=== PATIENT | female | born 1995 | race Asian ===

== ENCOUNTER 2016-11-17 18:47 | Emergency (ER) | payer BC ==
[~2016-11-17] VITALS: Wt 57.5 kg
[~2016-11-17 18:47] MED LIST: ONDA4TAB14 PO; RANI150T9 PO
[2016-11-17 18:56] VITALS: Wt 57.5 kg
[2016-11-17] MEDS ORDERED: ACETAMINOPHEN 325 MG TAB PO ONE (20:00)
[2016-11-17 20:15] LABS: ADD UMIC YES; URINE BILIRUBIN (Dip) NEGATIVE (NEGATIVE); URINE BLOOD (Dip) NEGATIVE (NEGATIVE); URINE COLOR LT. YELLOW (YELLOW); URINE GLUCOSE (Dip) NEGATIVE (NEGATIVE); URINE KETONES (Dip) 3+ (NEGATIVE); URINE LEUKOCYTE ESTERASE (Dip) TRACE (NEGATIVE); URINE NITRITE (Dip) NEGATIVE (NEGATIVE); URINE TOTAL PROTEIN (Dip) NEGATIVE (NEGATIVE); URINE UROBILINOGEN (Dip) 1.0 E.U./dL (0.1-1.0)
[2016-11-17 20:23] LABS: BACTERIA,URINE OCCASIONAL
[2016-11-17 22:06] LABS: ADD SCAN DIFF NO
[2016-11-17 22:08] LABS: BASOPHILS % 0.2 % (0.0-2.0); EOSINOPHILS % 0.1 % (0.0-7.0); HEMATOCRIT 40.8 % (37.0-47.0); LYMPHOCYTES # 1.5 10^3/ul (0.8-2.9); LYMPHOCYTES % 14.6 % (15.0-51.0); MEAN CORPUSCULAR HEMOGLOBIN 24.9 pg (29.0-33.0); MEAN CORPUSCULAR HGB CONC 31.9 g/dl (32.0-37.0); MEAN CORPUSCULAR VOLUME 78.2 fl (82.0-101.0); MEAN PLATELET VOLUME 10.6 fl (7.4-10.4); MONOCYTE # 1.3 10^3/ul (0.3-0.9); MONOCYTES % 12.6 % (0.0-11.0); NEUTROPHIL # 7.2 10^3/ul (1.6-7.5); NEUTROPHILS % 72.3 % (39.0-77.0); PLATELET COUNT 248 10^3/UL (140-415); RED BLOOD COUNT 5.22 10^6/ul (4.20-5.40); RED CELL DISTRIBUTION WIDTH 13.2 % (11.5-14.5)
[2016-11-17 22:26] LABS: ALBUMIN 4.6 g/dl (3.3-4.9)
[2016-11-17 22:27] LABS: POTASSIUM 3.8 mmol/L (3.5-5.1)
[2016-11-17 22:29] LABS: BILIRUBIN,INDIRECT 0.3 mg/dl (0-1.1); BILIRUBIN,TOTAL 0.3 mg/dl (0.2-1.3); CREATININE 0.65 mg/dl (0.44-1.00)
[2016-11-17 22:30] LABS: ALBUMIN/GLOBULIN RATIO 1.17; CALCIUM 9.1 mg/dl (8.4-10.2); TOTAL PROTEIN 8.5 g/dl (6.1-8.1)
[2016-11-17] MEDS ORDERED: METR500T PO (22:34)
[2016-11-17] MEDS ORDERED: CIPR500T4 PO (22:34)
[2016-11-17] MEDS ORDERED: LOPE2CAP PO (22:40)
--- NOTE | 2016-11-17 22:45 | ERA ---
ER Documentation Chief Complaint Date/Time DATE: 11/17/16 TIME: 22:40 Chief Complaint BODYACHE/FATIGUE/CHEST WALL PAIN X6DAYS, SORE THROAT/FEVER X4DAYS HPI This is a 20-year-old female who presents with a chief complaint of diarrhea 3 days. Patient describes the diarrhea as brown and watery more than 3 times per day. Patient denies recent recent travel. Patient denies anorexia, weight loss , migrating pain, constipation, postprandial abdominal pain, new or recently changed medications, genital pain or ingestion of new or undercooked food. Patient also had a complaint of palpitations. Patient has experienced a recent family trauma that she is not willing discuss. Patient denies chest pain or shortness of breath. Patient does admit to family history of cardiac disease before 30 years old. There are no other complaints at this time. ROS All systems reviewed and are negative except as per history of present illness. Medications Home Meds Active Scripts Loperamide Hcl* (Imodium*) 2 Mg Capsule, 2 MG PO .AFTER EA LOOSE BM Y for DIARRHEA, #10 TAB Prov:JUANCHO GODWIN PA-C 11/17/16 Metronidazole* (Flagyl*) 500 Mg Tablet, 500 MG PO TID for 7 Days, TAB Prov:JUANCHO GODWIN PA-C 11/17/16 Ciprofloxacin Hcl* (Ciprofloxacin Hcl*) 500 Mg Tablet, 500 MG PO BID for 7 Days , TAB Prov:JUANCHO GODWIN PA-C 11/17/16 Ondansetron (Ondansetron Odt) 4 Mg Tab.rapdis, 4 MG PO Q6H Y for NAUSEA AND/OR VOMITING, #10 TAB Prov:GEORGE HECK 05/26/16 Ranitidine Hcl* (Zantac*) 150 Mg Tablet, 150 MG PO BID Y for EPIGASTRIC PAIN, # 30 TAB Prov:GEROGE HECK 05/26/16 Allergies Allergies: Coded Allergies: doxycycline (Verified Allergy, Intermediate, VOMITING, 02/14/14) PMhx/Soc History of Surgery: No Anesthesia Reaction: No Hx Neurological Disorder: No Hx Respiratory Disorders: No Hx Cardiac Disorders: No Hx Psychiatric Problems: No Hx Miscellaneous Medical Probl: No Hx Alcohol Use: Yes (every few months) Hx Substance Use: Yes (marijuana daily) Hx Tobacco Use: Yes (occasionally) Smoking Status: Current some day smoker Physical Exam Vitals Vital Signs Date Time Temp Pulse Resp B/P Pulse Ox O2 Delivery O2 Flow Rate FiO2 11/17/16 18:56 100.5 115 22 118/70 99 Physical Exam Const: Well-appearing 20-year-old female in no acute distress who is smiling able to joke around. Head: Atraumatic Eyes: Normal Conjunctiva ENT: Normal External Ears, Nose and Mouth. Neck: Full range of motion..~ No meningismus. Resp: Clear to auscultation bilaterally Cardio: Regular rate and rhythm, no murmurs Abd: Soft, non tender, non distended. Normal bowel sounds. No McBurney's point tenderness.. Extraocular movements intact bilaterally. Pupils PERRLA. No masses palpated. Skin: No petechiae or rashes Back: No midline or flank tenderness Ext: No cyanosis, or edema Neur: Awake and alert Psych: Normal Mood and Affect Result Diagram: 11/17/16213311/17/162133 Results 24 hrs Laboratory Tests Test 11/17/16 19:50 11/17/16 21:34 Urine Color LT. YELLOW Urine Clarity CLEAR Urine pH 6.5 Urine Specific [place] 1.020 Urine Ketones 3+ Urine Nitrite NEGATIVE Urine Bilirubin NEGATIVE Urine Urobilinogen 1.0 E.U./dL Urine Leukocyte Esterase TRACE Urine Microscopic RBC 5-10/HPF Urine Microscopic WBC 5-10/HPF Urine Epithelial Cells MODERATE Urine Bacteria OCCASIONAL Urine Hemoglobin NEGATIVE Urine Glucose NEGATIVE% Urine Total Protein NEGATIVE White Blood Count 10.010^3/ul Red Blood Count 5.2210^6/ul Hemoglobin 13.0g/dl Hematocrit 40.8% Mean Corpuscular Volume 78.2fl Mean Corpuscular Hemoglobin 24.9pg Mean Corpuscular Hemoglobin Concent 31.9g/dl Red Cell Distribution Width 13.2% Platelet Count 82267^3/UL Mean Platelet Volume 10.6fl Neutrophils % 72.3% Lymphocytes % 14.6% Monocytes % 12.6% Eosinophils % 0.1% Basophils % 0.2% Nucleated Red Blood Cells % 0.0/100WBC Neutrophils # 7.210^3/ul Lymphocytes # 1.510^3/ul Monocytes # 1.310^3/ul Eosinophils # 0.010^3/ul Basophils # 0.010^3/ul Nucleated Red Blood Cells # 0.010^3/ul Sodium Level 140mmol/L Potassium Level 3.8mmol/L Chloride Level 101mmol/L Carbon Dioxide Level 22mmol/L Anion Gap 21 Blood Urea Nitrogen 8mg/dl Creatinine 0.65mg/dl Glucose Level 99mg/dl Calcium Level 9.1mg/dl Total Bilirubin 0.3mg/dl Direct Bilirubin 0.00mg/dl Indirect Bilirubin 0.3mg/dl Aspartate Amino Transf (AST/SGOT) 29IU/L Alanine Aminotransferase (ALT/SGPT) 39IU/L Alkaline Phosphatase 84IU/L Total Protein 8.5g/dl Albumin 4.6g/dl Globulin 3.90g/dl Albumin/Globulin Ratio 1.17 Current Medications Medications (Trade) Dose Ordered Sig/Yovana Route PRN Reason Start Time Stop Time Status Last Admin Dose Admin Acetaminophen (Tylenol Tab) 650 mg ONCE ONCE PO 11/17/16 20:00 11/17/16 20:01 DC 11/17/16 19:54 Procedures/MDM Patient was evaluated and worked up for abdominal discomfort. Patient was given acetaminophen in the ED for symptomatic control with relief of fever. The workup included an EKG due to family history of cardiac disease and palpitations that was unremarkable. Patient was also worked up with CBC and CMP as well as urinalysis. The findings are most consistent with infection causing diarrhea. Most likely diagnosis is infectious noninvasive diarrhea. The treatment plan will thus include symptomatic control with loperamide and acetaminophen which patient has at home. Patient will also be prescribed Cipro and metronidazole for antibacterial treatment. At this time I do not suspect acute coronary syndrome, pulmonary embolism, pneumonia, appendicitis, ectopic , ovarian cyst, PID, UTI, intestinal ischemia, peritonitis, intestinal obstruction, perforated viscus, acute pancreatitis, cholelithiasis, cholangitis, mechanical obstruction, or AAA. I have reviewed the case and the lab findings with my attending who has agreed with my assessment and plan. On repeat exam, the abdominal exam remains unremarkable. The patient is well appearing, and tolerates PO. I have spoke with the patient regarding their condition and future management. They have verbally responded that they understand their status and treatment plan. The patients vitals are stable, and their current condition is appropriate for discharge. The patient will be given discharge instructions with return precautions. Departure Diagnosis: Primary Impression: Diarrhea Qualified Code: A09 - Diarrhea of presumed infectious origin Condition: Stable Patient Instructions: Treating Diarrhea Additional Instructions: Follow up with your PCP within the next 1-3 days for a more thorough evaluation and a possible referral to a specialist. Return the the emergency department immediately if symptoms worsen or change. If you have any questions regarding medications, ask your pharmacist or us before you leave. If any adverse reactions occur while taking your medications, discontinue the treatment and return to the emergency department immediately. Take your medications as directed, and complete the entire course of treatment. JUANCHO GODWIN PA-C November 17, 2016 22:45
[2016-11-17 22:49] VITALS: BP 116/68; PULSE 78; RESP 16
== END 2016-11-17 22:50 | disposition home or self-care (01) ==
LOC: FTE 18:47
DX: A09 Infectious gastroenteritis and colitis, unspecified (principal); F17.210 Nicotine dependence, cigarettes, uncomplicated
CPT/HCPCS: 80053; 81001; 85025; 93005

== ENCOUNTER 2017-04-12 08:51 | Emergency (ER) | payer BC ==
[~2017-04-12] VITALS: Wt 57.5 kg
[~2017-04-12 08:51] MED LIST changes: +CIPR500T4 PO; +LOPE2CAP PO; +METR500T PO
--- NOTE | 2017-04-12 10:57 | ERD ---
ER Documentation Chief Complaint Date/Time DATE: 04/12/17 TIME: 10:51 Chief Complaint intermittent cp rad into l. arm x3 wks HPI This is a 21-year-old female with a history of anxiety presenting to the emergency department complaining of intermittent moderate, sharp chest pain that radiates to her left arm for the past 3-4 weeks. Patient recently has also job and has been stressed out lately. Patient admits to having intermittent shortness of breath associated with it. She admits to having numbness and tingling, she locates it in her left thumb. Patient admits to having neck pain. Patient denies fevers, history of heart conditions. Patient denies suicidal ideation, plan or homicidal ideation or plan. ROS All systems reviewed and are negative except as per history of present illness. Medications Home Meds Active Scripts Cyclobenzaprine Hcl* (Cyclobenzaprine Hcl*) 10 Mg Tablet, 10 MG PO TID, #20 TAB Prov:MARK VARELA PA-C 04/12/17 Acetaminophen* (Tylenol*) 325 Mg Tablet, 2 TAB PO Q6 Y for PAIN AND OR ELEVATED TEMP, #30 TAB Prov:MARK VARELA PA-C 04/12/17 Loperamide Hcl* (Imodium*) 2 Mg Capsule, 2 MG PO .AFTER EA LOOSE BM Y for DIARRHEA, #10 TAB Prov:JUANCHO GODWIN PA-C 11/17/16 Metronidazole* (Flagyl*) 500 Mg Tablet, 500 MG PO TID for 7 Days, TAB Prov:JUANCHO GODWIN PA-C 11/17/16 Ciprofloxacin Hcl* (Ciprofloxacin Hcl*) 500 Mg Tablet, 500 MG PO BID for 7 Days , TAB Prov:JUANCHO GODWIN PA-C 11/17/16 Ondansetron (Ondansetron Odt) 4 Mg Tab.rapdis, 4 MG PO Q6H Y for NAUSEA AND/OR VOMITING, #10 TAB Prov:GEORGE HECK 05/26/16 Ranitidine Hcl* (Zantac*) 150 Mg Tablet, 150 MG PO BID Y for EPIGASTRIC PAIN, # 30 TAB Prov:GEORGE HECK 05/26/16 Allergies Allergies: Coded Allergies: doxycycline (Verified Allergy, Intermediate, VOMITING, 02/14/14) PMhx/Soc History of Surgery: No Anesthesia Reaction: No Hx Neurological Disorder: No Hx Respiratory Disorders: No Hx Cardiac Disorders: No Hx Psychiatric Problems: No Hx Miscellaneous Medical Probl: No Hx Alcohol Use: Yes (every few months) Hx Substance Use: Yes (marijuana daily) Hx Tobacco Use: Yes (occasionally) Physical Exam Vitals Vital Signs Date Time Temp Pulse Resp B/P Pulse Ox O2 Delivery O2 Flow Rate FiO2 04/12/17 08:52 98.0 87 20 119/71 98 Physical Exam GENERAL: no acute distress, non-toxic appearing, sitting up in bed HENT: normocephalic/atraumatic EYES: conjunctiva is normal NECK: no noticeable or palpable swelling, no carotid bruits, no JVD TTP on the trapezius and cervical CARDIOVASCULAR: RRR, good S1S2, no murmurs or gallops heard PULM: clear to auscultation, no use of accessory muscles, no crackles or wheezes. ABDOMEN: normal bowel sounds, abdomen soft and nontender EXT: no edema, cyanosis or clubbing MUSCULOSKELETAL: 5/5 strength, normal range of motion, no swollen or erythematous joints. NEURO: alert and oriented SKIN: no rashes, skin warm and dry, no erythematous areas BREAST: breast exam was not relevant, therefore not preformed PSYCH: normal mood and mentation, denies suicidal or homicidal ideation and thoughts Results 24 hrs Current Medications Medications (Trade) Dose Ordered Sig/Yovana Route PRN Reason Start Time Stop Time Status Last Admin Dose Admin Lorazepam (Ativan) 1 mg ONCE ONCE PO 04/12/17 11:30 04/12/17 11:31 Acetaminophen (Tylenol Tab) 650 mg ONCE STAT PO 04/12/17 11:16 04/12/17 11:17 DC Procedures/MDM This is a 21-year-old female with a history of anxiety presenting to the emergency department complaining of intermittent moderate, sharp chest pain that radiates to her left arm for the past 3-4 weeks. Patient recently lost a job, she is very stressed out. Denies SI or HI. Patient heart score is low, low suspicion for ACS, PE or other acute cardiopulmonary conditions. Patient likely has cervical radiculopathy due to neck pain and radial distribution of numbness. Cervical x-ray was done and showed reversal of lordosis likely due to spasm. Patient appears stable and neurovascular intact to be discharged home to follow-up with primary care physician. 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 Patient understands and agrees with this plan EKG: read and signed off by myself and Rate/Rhythm: Sinus Rhythm 66bpm with marked arrhythmia QRS, ST, T-waves: No changes consistent w/ acute ischemia Impression: No evidence of ischemia or arrhythmia Chest X-ray 1V Interpreted by me: Soft Tissue: No acute abnormalities Bones: No acute abnormalities Mediastinum/Cardiac Silhouette/Lungs: No acute abnormalities Prescriptions for Tylenol and Flexeril provided Departure Diagnosis: Primary Impression: Cervical radiculopathy Additional Impressions: Chest pain Neck pain Condition: Stable MARK VARELA PA-C Apr 12, 2017 10:57
--- NOTE | 2017-04-12 11:02 | RADRPT ---
PROCEDURE: XR Cervical Spine. CLINICAL INDICATION: pain TECHNIQUE: AP, lateral and odontoid views of the cervical spine were performed. The images were re viewed on a PACS workstation. COMPARISON: None. FINDINGS: There is reversal of the cervical lordosis. The vertebral body alignment, height and osseous mineralization are normal. The intervertebral disc spaces are well maintained. There are no abnormal calcifications. The prevertebral soft tissues are normal. No radiopaque foreign bodies are identified. There is no acute fracture or subluxation. RPTAT: AA IMPRESSION: Reversal of the cervical lordosis. .Mina Smallwood MD, Date Time Electronically viewed and signed by .Mina Smallwood MD, on 04/12/2017 11:02 .S/
--- NOTE | 2017-04-12 11:02 | RADRPT ---
PROCEDURE: XR Chest. CLINICAL INDICATION: chest pain TECHNIQUE: Single frontal view of the chest was obtained COMPARISON: CR CHEST 02/14/2014 FINDINGS: The heart and mediastinum are within normal limits. The lungs are clear. There is no pleural effusion or pneumothorax. RPTAT: AA IMPRESSION: No acute disease. .Mina Smallwood MD, MD Date Time Electronically viewed and signed by .Mina Smallwood MD, on 04/12/2017 11:01 .S/
[2017-04-12] MEDS ORDERED: ACET325T33 PO (11:12)
[2017-04-12] MEDS ORDERED: ACETAMINOPHEN 325 MG TAB PO STA (11:16)
[2017-04-12] MEDS ORDERED: CYCL-319 PO (11:17)
[2017-04-12] MEDS ORDERED: LORAZEPAM 1 MG TAB PO ONE (11:30)
[2017-04-12 11:37] VITALS: BP 135/65; PULSE 77; RESP 16
== END 2017-04-12 11:38 | disposition home or self-care (01) ==
LOC: FTE 08:51
DX: M54.12 Radiculopathy, cervical region (principal); Z87.891 Personal history of nicotine dependence
CPT/HCPCS: 71010; 72040; 93005